=== PATIENT | male | born 1975 | race Hispanic/Latino ===

== ENCOUNTER 2016-10-03 02:35 | Emergency (ER) | payer BC, OTHER ==
[2016-10-03 02:47] VITALS: BP 110/66; PULSE 72; TEMP 98.4; O2SAT 98
[2016-10-03 02:55] VITALS: RESP 18
--- NOTE | 2016-10-03 03:19 | ED PDOC ---
HPI: General Adult Time Seen by Provider: 10/03/16 02:51 Chief Complaint (Nursing): ENT Problem Chief Complaint (Provider): left sided ear pain History Per: Patient History/Exam Limitations: no limitations Onset/Duration Of Symptoms: Days (2 days) Have you had recent travel within the past 21 days to any of the following countries: [place], [place], [place] or [place]?: No Current Symptoms Are (Timing): Still Present Severity: Moderate Pain Scale Rating Of: 4 Additional History Per: Patient Additional Complaint(s): 41 y/o M PMH of Crohn's ( in remission), presenting with 2 days of left ear pain and tinnitus. Pain is intermittent, currently mild but can get up to 8/10 intensity. Associated with mild hearing loss in left ear. Denies any discharge, recent trauma, Qtip or earphone use. PMD: In [facility] PMH: Crohns, anxiety Meds: Emma, celexa, seroquel Allergies: NKDA Past Medical History Vital Signs: Last Vital Signs Temp 98.4 F 10/03/16 02:51 Pulse 72 10/03/16 02:51 Resp 18 10/03/16 02:51 BP 110/66 10/03/16 02:51 Pulse Ox 98 10/03/16 03:55 - Medical History PMH: Anxiety (on Seroquel & Celexa), Crohn's Disease, Kidney Stones (3-4x/year) - Family History Family History: States: Unknown Family Hx - Immunization History Hx Tetanus Toxoid Vaccination: No Hx Influenza Vaccination: No Hx Pneumococcal Vaccination: No - Home Medications Home Medications: Ambulatory Orders Medication Instructions Recorded Ibuprofen [Motrin] 600 mg PO Q6 PRN #20 tab 09/12/14 Ciprofloxacin/Ciprofloxa HCl 500 mg PO BID #20 tab 03/11/15 [Ciprofloxacin ER 500 mg Tablet] Metronidazole [Flagyl] 500 mg PO BID #20 tab 03/11/15 Prednisone 10 mg PO DAILY #95 tab 03/11/15 Tamsulosin [Flomax] 0.4 mg PO DAILY #30 cap 03/11/15 Ibuprofen [Motrin Tab] 600 mg PO Q6 #30 tab 10/03/16 Ofloxacin Otic 0.3% [Floxin 0.3% 0.5 ml OT DAILY 7 Days 10/03/16 Otic Soln] - Allergies Allergies/Adverse Reactions: Allergies Allergy/AdvReac Type Severity Reaction Status Date / Time No Known Allergies Allergy Verified 10/03/16 02:46 Review of Systems Constitutional: Negative for: Fever Eyes: Negative for: Vision Change ENT: Positive for: Ear Pain. Negative for: Ear Discharge, Nose Congestion, Throat Swelling Cardiovascular: Negative for: Chest Pain Respiratory: Negative for: Cough, Shortness of Breath Gastrointestinal: Negative for: Nausea, Vomiting, Abdominal Pain Genitourinary Male: Negative for: Dysuria, Rash Skin: Negative for: Rash Neurological: Negative for: Weakness, Numbness, Confusion, Dizziness Physical Exam - Physical Exam Appears: Positive for: No Acute Distress Head Exam: Positive for: ATRAUMATIC Skin: Positive for: Warm, Dry Eye Exam: Positive for: EOMI, PERRL ENT: Positive for: TM Is/Are (right: TM clear; Left: perforated TM, non infected , no discharge). Negative for: Pharyngeal Erythema Cardiovascular/Chest: Positive for: Regular Rate, Rhythm Respiratory: Positive for: Normal Breath Sounds Gastrointestinal/Abdominal: Positive for: Soft. Negative for: Tenderness Neurologic/Psych: Positive for: Alert, Oriented - ECG O2 Sat by Pulse Oximetry: 98 - Progress ED Course And Treament: Left ear pain 2/2 Perforated TM unknown etiology Viscous Lidocaine for pain can take OTC NSAIDs at home follow up with ENT as advised Re-evaluation Time: 03:55 Condition: Improved Disposition - Clinical Impression Clinical Impression: Perforated tympanic membrane - Disposition Referrals: Michael Morfin MD [Staff Provider] - Disposition: Routine/Home Disposition Time: 04:03 Condition: STABLE Prescriptions: Ibuprofen [Motrin Tab] 600 mg PO Q6 #30 tab Ofloxacin Otic 0.3% [Floxin 0.3% Otic Soln] 0.5 ml OT DAILY 7 Days Instructions: Ruptured Eardrum (ED)
== END 2016-10-03 04:02 | disposition home or self-care (01) ==
LOC: H.ER 02:35
DX: H72.92 Unspecified perforation of tympanic membrane, left ear (principal)

== ENCOUNTER 2017-11-16 07:24 | Emergency (ER) | payer BC ==
[2017-11-16 07:38] VITALS: BMI 25.1
[2017-11-16] MEDS ORDERED: Sodium Chloride 0.9% 1,000 ML IV STA (08:30)
--- NOTE | 2017-11-16 08:47 | ED PDOC ---
HPI: Male Pain Time Seen by Provider: 11/16/17 08:05 Chief Complaint (Nursing): Male Genitourinary Chief Complaint (Provider): Male Genitourinary History Per: Patient History/Exam Limitations: no limitations Onset/Duration Of Symptoms: Days (X3) Additional Complaint(s): 42 y/o male with a PMHx of kidney stones and Crohn's Disease presents to the ED complaining of fever and chills associated with dysuria and pain with ejaculation, onset three days. Patient reports he last took Tylenol [address] scan showed a stone in the left kidney at approximately 4 mm. Patient also reports of vomiting this morning. Denies hematuria, abdominal pain , constipation, and diarrhea. PMD: Amanda Aragon () Past Medical History Reviewed: Historical Data, Nursing Documentation, Vital Signs Vital Signs: Last Vital Signs Temp 101.1 F H 11/16/17 07:39 Pulse 104 H 11/16/17 07:39 Resp 18 11/16/17 07:39 BP Pulse Ox 99 11/16/17 07:39 - Medical History PMH: Anxiety (on Seroquel & Celexa), Crohn's Disease, Kidney Stones (3-4x/year) - Surgical History Other surgeries: Lithotripsy - Family History Family History: States: Unknown Family Hx - Social History Current smoker - smoking cessation education provided: No Alcohol: None - Immunization History Hx Tetanus Toxoid Vaccination: No Hx Influenza Vaccination: No Hx Pneumococcal Vaccination: No - Home Medications Home Medications: Ambulatory Orders Medication Instructions Recorded Ibuprofen [Motrin] 600 mg PO Q6 PRN #20 tab 09/12/14 Ciprofloxacin/Ciprofloxa HCl 500 mg PO BID #20 tab 03/11/15 [Ciprofloxacin ER 500 mg Tablet] Metronidazole [Flagyl] 500 mg PO BID #20 tab 03/11/15 Prednisone 10 mg PO DAILY #95 tab 03/11/15 Tamsulosin [Flomax] 0.4 mg PO DAILY #30 cap 03/11/15 Ibuprofen [Motrin Tab] 600 mg PO Q6 #30 tab 10/03/16 Ofloxacin Otic 0.3% [Floxin 0.3% 0.5 ml OT DAILY 7 Days bottle 10/03/16 Otic Soln] Ciprofloxacin [Cipro] 500 mg PO BID #14 tab 11/16/17 Ibuprofen [Motrin] 600 mg PO Q6H PRN #20 tab 11/16/17 - Allergies Allergies/Adverse Reactions: Allergies Allergy/AdvReac Type Severity Reaction Status Date / Time No Known Allergies Allergy Verified 11/16/17 07:59 Review of Systems ROS Statement: Except As Marked, All Systems Reviewed And Found Negative Constitutional: Positive for: Fever, Chills Gastrointestinal: Positive for: Vomiting. Negative for: Abdominal Pain, Diarrhea, Constipation Genitourinary Male: Positive for: Dysuria, Other (Pain with ejaculation). Negative for: Hematuria Physical Exam - Reviewed Nursing Documentation Reviewed: Yes Vital Signs Reviewed: Yes - Physical Exam Appears: Positive for: No Acute Distress Head Exam: Positive for: ATRAUMATIC, NORMOCEPHALIC Skin: Positive for: Normal Color, Warm, Dry Eye Exam: Positive for: Normal appearance, EOMI, PERRL Neck: Positive for: Normal, Painless ROM Cardiovascular/Chest: Positive for: Regular Rate, Rhythm. Negative for: Murmur Respiratory: Positive for: Normal Breath Sounds. Negative for: Respiratory Distress Gastrointestinal/Abdominal: Positive for: Normal Exam, Soft. Negative for: Tenderness Male Genital Exam: Positive for: other (Exam witnessed/chaperoned by RN Duc Polo. No other abnormalities). Negative for: erythema, lesions, testicular tenderness (R), testicular tenderness (L), urethral discharge Back: Positive for: Normal Inspection. Negative for: L CVA Tenderness, R CVA Tenderness Extremity: Positive for: Normal ROM. Negative for: Deformity Neurologic/Psych: Positive for: Alert, Oriented. Negative for: Motor/Sensory Deficits - Laboratory Results Result Diagrams: 11/16/17 08:45 11/16/17 08:45 - ECG O2 Sat by Pulse Oximetry: 99 (RA) Pulse Ox Interpretation: Normal Medical Decision Making Medical Decision Making: Time: 830 Plan: -- VBG Shock Panel -- CT Abd/Pelvis w/ PO or IV Contrast -- CMP -- ED Urine Dipstick -- CBC with differentials -- PTT -- Prothrombin Time -- Motrin Tab 600 mg PO -- Sodium Chloride IV 1000 mls/hr -- Blood Culture -- Urine Culture -- Urinalysis Time: 0900 -- At this time, patient refused CT scan. Scribe Attestation: Documented by Violet Robbins acting as a scribe for Dr. Ana Ku MD. Provider Scribe Attestation: All medical record entries made by the Scribe were at my direction and personally dictated by me. I have reviewed the chart and agree that the record accurately reflects my personal performance of the history, physical exam, medical decision making, and the department course for this patient. I have also personally directed, reviewed, and agree with the discharge instructions and disposition. Disposition - Clinical Impression Clinical Impression: Urinary tract infection - Disposition Referrals: Cassie Ayon [Outside] Wili Carpio MD [Staff Provider] - Disposition: Routine/Home Disposition Time: 10:03 Condition: IMPROVED Additional Instructions: FOLLOW-UP WITH PMD WITHIN 2 DAYS FOR REEVALUATION. Prescriptions: Ciprofloxacin [Cipro] 500 mg PO BID #14 tab Ibuprofen [Motrin] 600 mg PO Q6H PRN #20 tab PRN Reason: Pain, Moderate (4-7) Instructions: Urinary Tract Infections in Adults Forms: [facility] (Lao)
[2017-11-16 08:53] LABS: URINE BACTERIA RARE (<OCC); URINE BILIRUBIN NEGATIVE (NEGATIVE); URINE BLOOD MODERATE (NEGATIVE); URINE CLARITY SLIGHTY-CLOUDY (Clear); URINE COLOR YELLOW (YELLOW); URINE GLUCOSE (UA) NEG (Normal); URINE LEUKOCYTE ESTERASE TRACE Leu/uL (Negative); URINE PROTEIN NEGATIVE (NEGATIVE); URINE UROBILINOGEN 0.2-1.0 mg/dL (0.2-1.0)
[2017-11-16 09:00] LABS: VENOUS BLOOD GAS BASE EXCESS 5.8 mmol/L (0.0-2.0); VENOUS BLOOD GAS PCO2 44 mmHg (40-60); VENOUS BLOOD GAS PO2 20 mm/Hg (30-55); VENOUS BLOOD PH 7.45 (7.32-7.43)
[2017-11-16 09:02] LABS: BASO % 0.5 % (0.0-2.0); EOS % 0.3 % (0.0-4.0); HEMOGLOBIN 13.4 g/dL (12.0-18.0); LYMPH # 0.9 K/uL (1.0-4.3); LYMPH % 17.6 % (20.0-40.0); MEAN CELL VOLUME 89.5 fl (80.0-94.0); MEAN CORPUSCULAR HEMOGLOBIN 30.5 pg (27.0-31.0); MEAN CORPUSCULAR HGB CONC 34.1 g/dL (33.0-37.0); MEAN PLATELET VOLUME 6.9 fl (7.2-11.7); MONO # 0.6 K/uL (0.0-0.8); MONO % 11.3 % (0.0-10.0); NEUT # 3.8 K/uL (1.8-7.0); NEUT % 70.3 % (50.0-75.0); NRBC % 0.3 % (0.0-0.0); RBC 4.39 Mil/uL (4.40-5.90); RED CELL DISTRIBUTION WIDTH 13.3 % (11.5-14.5); WHITE BLOOD COUNT 5.4 K/uL (4.8-10.8)
[2017-11-16] MEDS ORDERED: cefTRIAXone (Rocephin) 1 gm Inj ONE (09:10)
[2017-11-16 09:17] LABS: PARTIAL THROMBOPLASTIN TIME 33.8 Seconds (25.6-37.1); PROTHROMBIN TIME 11.3 Seconds (9.8-13.1)
[2017-11-16 09:25] LABS: ALB/GLOB RATIO 1.1 (1.0-2.1); ALBUMIN 4.1 g/dL (3.5-5.0); ALT/SGPT 46 U/L (21-72); AST/SGOT 37 U/L (17-59); BLOOD UREA NITROGEN 11 mg/dl (9-20); GFR NON-AFRICAN AMERICAN > 60
[2017-11-16 10:24] VITALS: BP 124/60; PULSE 74; RESP 20; TEMP 99.3
[2017-11-18 15:40] VITALS: O2SAT 99
== END 2017-11-16 10:25 | disposition home or self-care (01) ==
LOC: H.ER 07:24
DX: N39.0 Urinary tract infection, site not specified (principal); K50.90 Crohn's disease, unspecified, without complications; F41.9 Anxiety disorder, unspecified
CPT/HCPCS: 80053; 81003; 82803; 85025; 85610; 85730; 87040; 87086; 96365; 99284; J0696; J7030

== ENCOUNTER 2017-11-24 07:12 | Emergency (ER) | payer BC ==
[2017-11-24 07:20] VITALS: TEMP 98.2; O2SAT 98
[2017-11-24 07:23] VITALS: BMI 25.8
[2017-11-24] MEDS ORDERED: Lidocaine 1% Inj (20ml) IJ ONE (07:35)
[2017-11-24] MEDS ORDERED: Tdap Vaccine 0.5 ml Vial (10-64 yrs) IM ONE ×2 (07:35→07:59)
[2017-11-24] MEDS ORDERED: Lidocaine 1% w Epi 1:100,000 Inj ONE (07:43)
[2017-11-24] MEDS ORDERED: Lidocaine/Epi 1% 1:100000 20 ML IJ ONE (08:06)
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
[2017-11-24 08:18] VITALS: BP 150/70; PULSE 72; RESP 18
== END 2017-11-24 08:10 | disposition home or self-care (01) ==
LOC: H.ER 07:12
DX: S01.01XA Laceration without foreign body of scalp, initial encounter (principal); W22.8XXA Striking against or struck by other objects, initial encounter; Y92.89 Other specified places as the place of occurrence of the external cause; K50.90 Crohn's disease, unspecified, without complications; F41.9 Anxiety disorder, unspecified